=== PATIENT | female | born 1990 | race Caucasian/White ===

== ENCOUNTER 2023-01-27 23:44 | Inpatient (IN) ==
[2023-01-28] MEDS ORDERED: OXYTOCIN 30 UNITS/500 ML BAG IV PRN ×3 (02:24→14:04)
[2023-01-28] MEDS ORDERED: LIDOCAINE 1% LOCAL 20 ML VIAL INFIL PRN (02:24)
[2023-01-28] MEDS ORDERED: ePHEDrine sulfate 50 MG/ML AMP ONE (02:40)
[2023-01-28] MEDS ORDERED: BUPIVACAINE 0.25% PF 30 ML VIAL ONE (02:41)
[2023-01-28] MEDS ORDERED: SODIUM CHLORIDE 0.9% PF INJ 10 ML VIAL ONE (02:41)
[2023-01-28] MEDS ORDERED: fentaNYL citrate PF 100 MCG/2 ML VIAL ONE (02:41)
[2023-01-28] MEDS ORDERED: fentaNYL 2MCG/ML ROPIVACAINE 1.25MG/ML 100 ML BAG EPI ONE (02:42)
[2023-01-28] MEDS ORDERED: LIDOCAINE 2%/EPINEPHRINE 1:200,000 20 ML PF ONE (02:42)
[2023-01-28] MEDS ORDERED: PENICILLIN G POTASSIUM 6 MU in DEXTROSE 5% 250 ML IV STA (02:44)
[2023-01-28] MEDS: LACTATED RINGER'S 1,000 ML IV PRN ×2 (02:50→06:55)
[2023-01-28 03:24] LABS: Hematocrit (blood only) 35.6 % (37.0-47.0); Hemoglobin 12.4 g/dl (12.0-16.0); Mean Corpuscular Hemoglobin 32.6 pg (25.0-34.0); Mean Corpuscular Hgb Conc 34.8 g/dL (32.0-36.0); Mean Corpuscular Volume 93.7 fL (80.0-100.0); Mean Platelet Volume 9.5 fL (9.4-12.4); Platelet Count 230 K/uL (130-400); RDW Coefficient of Variation 13.7 % (11.5-14.5); RDW Standard Deviation 46.4 fL (36.4-46.3); White Blood Count 13.55 K/ul (4.8-10.8)
--- NOTE | 2023-01-28 03:37 | Anesthesiology Consultation ---
Date of Service January 28, 2023 Assessment & Plan Chart Review Chart Review: Acceptable Risk for Labor Epidural Consults Requested none ASA ASA2 Proposed Anesthesia Anesthesia Type: Labor Epidural Risk / Benefits Reviewed With: PT / POA / Parent / Guardian, Accepts Plan and Informed Consent Obtained History Height/Weight Height: 5 ft 5 in Weight: 91.626 kg Allergies Allergy/AdvReac Type Severity Reaction Status Date / Time CAN'T TAKE STIMULANTS Allergy Mild HEART Uncoded 01/23/23 10:41 RACING decongestants AdvReac Unknown Uncoded 01/23/23 10:41 Medications Home Medications Medication Instructions Recorded Confirmed Last Taken prenat.vits,dmitry,pdp-adun-yfjhr 1 tab PO DAILY 06/17/22 01/23/23 Unknown Active Medications Generic Name Dose Route Start Last Admin Trade Name Freq PRN Reason Stop Dose Admin Penicillin G Potassium 6 mu/ 262 mls @ 262 mls/hr 01/28/23 02:44 01/28/23 03:19 Dextrose IV 01/28/23 03:43 262 mls/hr NOW STA Administration Lactated Ringer's 1,000 mls @ 125 mls/hr 01/28/23 02:24 01/28/23 03:20 Lr IV 01/30/23 02:23 125 mls/hr .Q8H PRN Infusion L&D Protocol Protocol Past Medical History Medical History History of chicken pox Hx of cardiac murmur ?hx long QT, then told did not have gene for long QT and she actually just had irregular heart beat Long Q-T syndrome Migraine without aura Exercise / Class Metabolic Activity II 4-5 Yardwork/Stairs/Walk up hill Past Family History Family History Aunt Cervix cancer paternal Other Diabetes Heart disease Hypertension Denies family history of Ovarian cancer Breast cancer Colorectal cancer Uterine cancer Past Surgical History Surgical History History of third molar tooth extraction No pertinent past surgical history S/P wisdom tooth extraction Past Anesthesia History No Hx of Anesthesia Complications and No Family Hx of Anesthesia Complications History of PONV No Hx of PONV and No Hx of Motion Sickness Social History Smoking Status: Never smoker Do You Dip or Chew Tobacco: No Hx Alcohol Use: No Hx Substance Use: No substance use type: does not use Physical Exam Vital Signs Last Vital Signs Temp 98.1 F 01/28/23 00:10 Pulse 60 01/28/23 00:10 Resp 18 01/28/23 00:10 BP 105/62 01/28/23 00:10 ENMT Mouth: no dentition abnormality Thyromental Distance: > or= 3.5 Finger Breadths Mallampati Class: II Neck normal visual inspection Respiratory normal respiratory effort Auscultation: lungs clear to auscultation bilaterally Cardiovascular Rate/Rhythm: regular rate and regular rhythm Testing Laboratory Results 01/28/23 03:02
[2023-01-28] MEDS ORDERED: ePHEDrine sulfate 50 MG/ML AMP IV PRN (03:58)
[2023-01-28] MEDS ORDERED: BUPIVACAINE 0.25% PF 30 ML VIAL EPI STA (03:58)
[2023-01-28] MEDS ORDERED: fentaNYL citrate PF 100 MCG/2 ML VIAL EPI PRN (03:58)
[2023-01-28] MEDS ORDERED: LIDOCAINE 2% MPF LOCAL 5 ML VIAL EPI PRN (03:58)
[2023-01-28] MEDS ORDERED: fentaNYL citrate PF 100 MCG/2 ML VIAL EPI STA (03:58)
[2023-01-28] MEDS ORDERED: fentaNYL 2MCG/ML ROPIVACAINE 1.25MG/ML 100 ML BAG EPI PRN (03:58)
[2023-01-28] MEDS ORDERED: diphenhydrAMINE 50 MG/ML VIAL IV PRN (03:58)
[2023-01-28] MEDS ORDERED: LIDOCAINE 2%/EPINEPHRINE 1:200,000 20 ML PF EPI STA (03:58)
[2023-01-28] MEDS ORDERED: SODIUM CHLORIDE 0.9% PF INJ 10 ML VIAL EPI STA (03:58)
[2023-01-28] MEDS ORDERED: NALOXONE HCL 1 MG in SODIUM CHLORIDE 0.9% 1000ML 1,000 ML IV PRN (03:58)
[2023-01-28] MEDS ORDERED: NALOXONE HCL 0.4 MG/1 ML VIAL/CARP IV PRN (03:58)
[2023-01-28] MEDS ORDERED: ONDANSETRON INJ 2 MG/ML 2 ML VIAL IV PRN (03:58)
[2023-01-28] MEDS ORDERED: ROPIVACAINE 0.5% PF 5 MG/ML 20 ML VIAL EPI PRN (03:58)
[2023-01-28] MEDS ORDERED: NALBUPHINE HCL INJ 10 MG/ML AMP IV PRN (03:58)
[2023-01-28] MEDS ORDERED: BUPIVACAINE 0.25% PF 30 ML VIAL EPI PRN (03:58)
[2023-01-28] MEDS ORDERED: SODIUM CHLORIDE 0.9% PF INJ 10 ML VIAL EPI PRN (03:58)
--- NOTE | 2023-01-28 05:59 | History & Physical Report ---
Date of Service January 28, 2023 Assessment & Plan (1) Supervision of normal first : (2) Carrier of group B Streptococcus: Plan 32 yo G1 at 40 5/7 wga admitted in labor VSS Fetus cat 1 labor - augment PRN GBS+, pcn ordered epidural in place Admission and Anticipated Discharge Date Admission Date: January 28, 2023 History of Present Illness Chief Complaint: ctx Primary Care Provider: Jt Liang PA-C 32 yo G1 at 40 5/7 wga presented earlier this AM w /ctx increasing in frequency and intensity. 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 Hx: G1 denies hx STIs 10/2020 neg cotest Allergies Allergy/AdvReac Type Severity Reaction Status Date / Time CAN'T TAKE STIMULANTS Allergy Mild HEART Uncoded 01/23/23 10:41 RACING decongestants AdvReac Unknown Uncoded 01/23/23 10:41 Home Medications Medication Instructions Recorded Confirmed Type prenat.vits,dmitry,bii-hufk-pxtfb 1 tab PO DAILY 06/17/22 01/28/23 History Patient History Medical History History of chicken pox Hx of cardiac murmur ?hx long QT, then told did not have gene for long QT and she actually just had irregular heart beat Long Q-T syndrome Migraine without aura Surgical History History of third molar tooth extraction No pertinent past surgical history S/P wisdom tooth extraction Family History Aunt Cervix cancer paternal Other Diabetes Heart disease Hypertension Denies family history of Ovarian cancer Breast cancer Colorectal cancer Uterine cancer Social History (Updated 06/17/22 @ 09:05 by Angie Arevalo) Smoking Status: Never smoker Second Hand Exposure: No; Do You Dip or Chew Tobacco: No; Tobacco Cessation Education Requested by Patient: No Hx Alcohol Use: No Hx Substance Use: No Preferred Language: Danish Communication Ability: Effective Dietetic Assistant Required: No Beliefs That Will Affect Care: None marital status: marital status details: Waylon Mejia (33) [phone] , work Current Living Situation: Spouse Current Living Situation Comment: lives with spouse, dog current occupational status: employed current occupation: [employer] Other Information That Helps Us Care for You: No Feels Safe at Home: Yes Safety Concerns: Feels Safe At This Time Assistive Devices: None Physical Exam Genitourinary: OB Exam Monitor Tracing: + external FHT monitor used, + external uterine monitor used and + category I SVE 3cm by RN Results & Data Vital Signs (Past 12 Hours) Vital Signs Temp Pulse Resp BP Pulse Ox 01/27/23 23:45 98.1 F 18 01/28/23 05:53 62 107/63 01/28/23 05:52 64 98 01/28/23 05:47 89 97 01/28/23 05:42 66 97 01/28/23 05:37 107 H 98 01/28/23 05:32 87 96 01/28/23 05:27 72 97 01/28/23 05:22 98 01/28/23 05:22 81 01/28/23 05:22 81 112/54 L 01/28/23 05:17 75 96 01/28/23 05:12 91 H 98 01/28/23 05:07 74 107/51 L 97 01/28/23 05:02 74 96 01/28/23 05:00 18 01/28/23 05:00 18 01/28/23 04:57 76 98 01/28/23 04:52 73 98 01/28/23 04:53 70 120/56 L 01/28/23 04:47 68 99 01/28/23 04:42 85 97 01/28/23 04:37 75 117/61 99 01/28/23 04:30 18 01/28/23 04:30 18 01/28/23 04:32 70 98 01/28/23 04:27 74 100 01/28/23 04:22 99 01/28/23 04:22 83 01/28/23 04:22 72 107/61 01/28/23 04:17 94 01/28/23 04:17 74 01/28/23 04:17 74 94 01/28/23 04:12 92 01/28/23 04:12 88 01/28/23 04:12 73 94 01/28/23 04:07 76 94 01/28/23 04:06 74 94 01/28/23 04:05 108/67 01/28/23 04:02 96 01/28/23 04:02 84 01/28/23 04:02 81 109/58 L 01/28/23 03:59 77 114/56 L 01/28/23 03:57 81 95 01/28/23 03:56 87 94 01/28/23 03:55 93 H 141/68 H 01/28/23 03:52 85 136/89 01/28/23 03:50 78 97 01/28/23 03:45 85 97 01/28/23 03:40 91 H 97 01/28/23 03:38 102 H 132/93 01/28/23 00:10 98.1 F 60 18 105/62 Laboratory Results OB Labs: Blood Type A Positive 06/19/22 Antibody Screen NEGATIVE 06/19/22 Hemoglobin 11.4 g/dl (12.0-16.0) L 10/31/22 Hematocrit 34.1 % (37.0-47.0) L 10/31/22 Mean Corpuscular Volume 90.4 fL (80.0-100.0) 06/19/22 Platelet Count 278 K/uL (130-400) 06/19/22 Rubella IgG Antibody Immune (Immune) 06/19/22 Rapid Plasma Reagin Nonreactive (Nonreactive) 06/19/22 Hepatitis B Surface Antigen. NON-REACTIVE (NON-REACTIVE) 06/19/22 Hepatitis C Antibody (EIA) NON-REACTIVE (NON-REACTIVE) 06/19/22 HIV (1&2) Ag and Ab Confirmation NON-REACTIVE (NON-REACTIVE) 06/19/22 Glucose 1 Hour 50 gm Load 96 mg/dl (70-130) 10/31/22 Maternal Serum Alpha Fetoprotein 46.9 ng/mL 08/07/22 OB Optional Labs: Chlamydia trachomatis RNA Not Detected (NotDetected) 06/19/22 Neisseria gonorrhoeae RNA Not Detected (NotDetected) 06/19/22 Alpha Fetoprotein Triple Screen SEE NOTE 08/07/22 Labs Reviewed: cf/sma-negative--mln cfdna-low risk--mln GBS positive afp neg--akh Code Status & VTE Plan VTE Prophylaxis Plan VTE Prophylaxis will be ordered: No Coding Level of Care Code None Diagnoses Supervision of normal first Z34.00 Carrier of group B Streptococcus Z22.330
[2023-01-28] MEDS ORDERED: NURSING L&D Epidural Breakthrough Pain Update ONE (07:24)
[2023-01-28] MEDS: PENICILLIN G POTASSIUM 3 MU in DEXTROSE 5% 100 ML IV SCH ×2 (07:27→12:23)
--- NOTE | 2023-01-28 07:55 | Labor Progress Brief Note ---
Date of Service January 28, 2023 Subjective comfortable w/ epidural Assessment & Plan (1) Supervision of normal first : (2) Carrier of group B Streptococcus: Plan 32 yo G1 at 40 5/7 wga admitted in labor VSS Fetus cat 1 labor - ctx look like they have spaced, will start pit GBS+, pcn ordered epidural in place Admission and Anticipated Discharge Date Admission Date: January 28, 2023 Physical Exam Genitourinary: Manual OB Exam: + cervical dilation 4 cm, + cervical effacement 60%, + station -2 and + amniotic fluid (SROM clear) OB Exam Monitor Tracing: + external FHT monitor used, + external uterine monitor used (irreg) and + category I (120/mod/+accel/-decel) Results & Data Vital Signs (Past 12 Hours) Vital Signs Temp Pulse Resp BP Pulse Ox 01/28/23 07:30 18 01/28/23 07:00 20 01/27/23 23:45 98.1 F 18 01/28/23 07:52 65 95 01/28/23 07:51 63 100/60 01/28/23 07:47 65 96 01/28/23 07:42 71 96 01/28/23 07:37 76 96 01/28/23 07:36 69 103/57 L 01/28/23 07:32 81 97 01/28/23 07:27 77 97 01/28/23 07:22 71 96 01/28/23 07:21 71 105/56 L 01/28/23 07:17 73 97 01/28/23 07:12 69 97 01/28/23 07:07 81 97 01/28/23 07:08 81 103/68 01/28/23 07:00 18 01/28/23 07:00 18 01/28/23 07:02 81 96 01/28/23 06:57 93 H 97 01/28/23 06:52 99 01/28/23 06:52 67 01/28/23 06:52 68 115/64 01/28/23 06:30 18 01/28/23 06:30 18 01/28/23 06:47 69 99 01/28/23 06:45 80 106/58 L 01/28/23 06:42 76 98 01/28/23 06:37 97 01/28/23 06:37 73 01/28/23 06:37 76 74/49 L 01/28/23 06:32 81 97 05 06:27 86 96 05 06:22 73 96 01/28/23 06:17 64 95 01/28/23 06:12 65 95 01/28/23 06:07 65 96 01/28/23 06:06 62 107/59 L 01/28/23 06:04 71 94 01/28/23 06:02 65 95 01/28/23 05:57 69 97 01/28/23 05:53 62 107/63 01/28/23 05:52 64 98 01/28/23 05:47 89 97 01/28/23 05:42 66 97 01/28/23 05:37 107 H 98 01/28/23 05:32 87 96 01/28/23 05:27 72 97 01/28/23 05:22 98 01/28/23 05:22 81 01/28/23 05:22 81 112/54 L 01/28/23 05:17 75 96 01/28/23 05:12 91 H 98 01/28/23 05:07 74 107/51 L 97 01/28/23 05:02 74 96 01/28/23 05:00 18 01/28/23 05:00 18 01/28/23 04:57 76 98 01/28/23 04:52 73 98 01/28/23 04:53 70 120/56 L 01/28/23 04:47 68 99 01/28/23 04:42 85 97 01/28/23 04:37 75 117/61 99 05 04:30 18 01/28/23 04:30 18 01/28/23 04:32 70 98 01/28/23 04:27 74 100 05 04:22 99 05 04:22 83 05 04:22 72 107/61 05 04:17 94 01/28/23 04:17 74 05 04:17 74 94 05 04:12 92 01/28/23 04:12 88 05 04:12 73 94 01/28/23 04:07 76 94 05 04:06 74 94 05 04:05 108/67 05 04:02 96 01/28/23 04:02 84 01/28/23 04:02 81 109/58 L 01/28/23 03:59 77 114/56 L 01/28/23 03:57 81 95 01/28/23 03:56 87 94 01/28/23 03:55 93 H 141/68 H 01/28/23 03:52 85 136/89 01/28/23 03:50 78 97 01/28/23 03:45 85 97 01/28/23 03:40 91 H 97 01/28/23 03:38 102 H 132/93 01/28/23 00:10 98.1 F 60 18 105/62 Coding Level of Care Code None Diagnoses Supervision of normal first Z34.00 Carrier of group B Streptococcus Z22.330
[2023-01-28] MEDS ORDERED: PENICILLIN G POTASSIUM 3 MU in DEXTROSE 5% 100 ML IV PRN (12:41)
--- NOTE | 2023-01-28 13:47 | Delivery Summary ---
Vaginal Delivery Summary Date of Service January 28, 2023 Vaginal Delivery Summary Spontaneous vaginal delivery the patient presented to labor for Dr. Hannon the night before she requested epidural received penicillin for group B strep status and progressed to fully dilated she pushed only over a few contractions there was some weight decelerations with pressure I debated using the vacuum but she was able to push so well she was able to deliver spontaneously. Baby's head was delivered mouth and nares suctioned there was a loose body cord the baby was pulled through gentle traction was again used no excessive force live vigorous female cord clamped and cut cord gases obtained cord blood obtained placenta removed with gentle traction IV Pitocin started second-degree tear repaired with 3-0 Vicryl sponge and instrument counts correct estimated blood loss 250 mL
[2023-01-28 14:04] LABS: Base Excess Cord Arterial Bld -10.9 mEq/L (-9-1.8); CO2 Cord Arterial Blood 73 mmHg (39.1-73.5); HCO3 Cord Arterial Blood 21 mmol/L (19.7-28.5); Oxygen Sat Cord Arterial Blood < 60.0 % (<60); PO2 Cord Arterial Blood 9 mmHg (4.1-31.7); pH Cord Arterial Blood 7.06 (7.1-7.38)
[2023-01-28] MEDS ORDERED: ACETAMINOPHEN 325 MG TAB PO PRN (14:04)
[2023-01-28] MEDS ORDERED: oxyCODONE/ACETAMINOPHEN 5mg/325mg TAB PO PRN (14:04)
[2023-01-28] MEDS ORDERED: BENZOCAINE 20% AER SPR 82.5 GM CAN EXT PRN (14:04)
[2023-01-28] MEDS ORDERED: bisacodyL 10 MG SUPP PR PRN (14:04)
[2023-01-28] MEDS ORDERED: HYDROCORTISONE ACETATE 25 MG SUPP PR PRN (14:04)
[2023-01-28] MEDS ORDERED: DIPHTHERIA/TETANUS/PERTUSSIS Vaccine (Tdap, Age 7+yrs) 0.5mL SYR/VL IM ONE (14:04)
[2023-01-28 14:05] LABS: Base Excess Cord Venous Blood -7.2 mEq/L (-7.7-1.9); Cord Venous Blood HCO3 22 mmol/L (18.4-26.8); Cord Venous Blood PCO2 59 mmHg (30.4-57.2); Cord Venous Blood PO2 23 mmHg (14.1-43.3); Cord Venous Blood pH 7.18 (7.20-7.44); O2 Saturation Cord Venous Bld < 60.0 % (<68)
--- NOTE | 2023-01-28 15:31 | Anesthesia Procedure Note ---
Date of Service January 28, 2023 Anesthesia Post Epidural Note Vital Signs Vital Signs: Temp Pulse Resp BP Pulse Ox 37.2 C 122 H 18 106/56 L 98 01/28/23 13:00 01/28/23 15:17 01/28/23 13:00 01/28/23 15:17 01/28/23 13:22 Pain Intensity Lower Abdomen: Pain Intensity: 2 Notes Mental Status: alert / awake / arousable and participated in evaluation Patient Amnestic to Procedure: No Nausea / Vomiting: adequately controlled Pain: adequately controlled Airway Patency, RR, SpO2: stable & adequate BP & HR: stable & adequate Hydration State: stable & adequate Neuraxial Anesthesia: was administered and sensory block is resolving Anesthetic Complications: no major complications apparent and Pt Satisfied with anesthetic care Epidural: Removed without complications and With tip intact
[2023-01-28] MEDS: IBUPROFEN 600 MG TAB PO PRN ×2 (16:29→21:26)
[2023-01-28] MEDS ORDERED: LACTATED RINGER'S 1,000 ML IV ONE (19:00)
[2023-01-28] MEDS: DOCUSATE SODIUM 100 MG CAP PO SCH (20:16)
[2023-01-29] MEDS: IBUPROFEN 600 MG TAB PO PRN ×4 (05:30→21:37)
--- NOTE | 2023-01-29 06:03 | Obstetrical Progress Note ---
Date of Service <Samantha Bhatia DO - Last Filed: 01/29/23 07:21> January 29, 2023 Assessment & Plan <Samantha AnnSally Bhatia DO - Last Filed: 01/29/23 07:21> (1) care following vaginal delivery: Patient is PPD 1 s/p and doing well. - Eating well, voiding well, ambulating well - Vitals reviewed and within normal limits - Pain well controlled with analgesics - OOB, ambulation, diet progression as tolerated - Blood type: A+, GBS pos (tx in labor), rubella immune - Plan to discharge tomorrow - After discharge, 6 week follow up with Dr. Marquez (2) Carrier of group B Streptococcus: <Андрей Marquez MD, FACOG - Last Filed: 01/29/23 07:53> (1) care following vaginal delivery: (2) Carrier of group B Streptococcus: Subjective <Samantha Bhatia DO - Last Filed: 01/29/23 07:21> Patient is a 32 yo female who is now PPD #1 following spontaneous vaginal delivery at 40 5/7 weeks. Reports feeling well this morning. She endorses feeling "weird" and like her "lungs have never been this full." She denies abdominal cramping. Voiding without issue. Tolerating regular meals overnight and able to ambulate some. She has passed gas. Persistent lochia with some improvement this morning. Currently bottle feeding. Review of Systems Denies fever, chills, sweats. Denies SOB, difficulty breathing, chest pain, palpitations, and chest pressure. Denies breast pain. Denies dysuria. Denies headache or changes in vision. Physical Exam <Samantha Bhatia DO - Last Filed: 01/29/23 07:21> General: Alert and oriented. No acute distress. CV: Regular rate and rhythm. No murmurs. Respiratory: CTA bilaterally. No rhonchi, wheezes, or crackles. No increased work of breathing. Abdomen: Positive bowel sounds. Soft, nontender, non distended. Uterus: Fundus firm and palpable 3 cm below the umbilicus. Lower extremities: No LE edema. No deep calf pain. Results & Data <Samantha Bhatia DO - Last Filed: 01/29/23 07:21> Vital Signs (Past 12 Hours) Vital Signs Temp Pulse Resp BP Pulse Ox O2 Del Method 01/28/23 19:54 36.6 C 88 16 116/72 97 Room Air <Андрей Marquez MD, FACOG - Last Filed: 01/29/23 07:53> Co-Signing Physician Notes Resident Physician Supervision Note: I was present with [Name of resident] during the history and exam. I discussed the case with the resident and agree with the findings and plan as documented in the note. Any exceptions or clarifications are listed here: [None] Documented By: Андрей Marquez MD, FACOG Resident Activity Tracking <Samantha Bhatia DO - Last Filed: 01/29/23 07:21> Resident Involvement: Resident Care Provided Care Provided: OB Delivery
[2023-01-29] MEDS: DOCUSATE SODIUM 100 MG CAP PO SCH ×2 (07:31→21:35)
[2023-01-29] MEDS: PRENATAL VITAMIN 1 TAB PO SCH (07:31)
[2023-01-29 07:47] LABS: Hematocrit (blood only) 28.8 % (37.0-47.0); Hemoglobin 9.8 g/dl (12.0-16.0); Mean Corpuscular Hemoglobin 32.8 pg (25.0-34.0); Mean Corpuscular Volume 96.3 fL (80.0-100.0); Mean Platelet Volume 9.3 fL (9.4-12.4); Platelet Count 186 K/uL (130-400); RDW Coefficient of Variation 13.9 % (11.5-14.5); Red Blood Count 2.99 M/uL (4.20-5.40); White Blood Count 11.84 K/ul (4.8-10.8)
[2023-01-29] MEDS ORDERED: bisacodyL 5 MG TABEC PO SCH (20:00)
[2023-01-30] MEDS: IBUPROFEN 600 MG TAB PO PRN ×2 (01:24→06:01)
--- NOTE | 2023-01-30 05:42 | Obstetrical Progress Note ---
Date of Service <Samantha Medeiros DO Sriram - Last Filed: 01/30/23 07:13> January 30, 2023 Assessment & Plan <Samantha SimpsonDO james - Last Filed: 01/30/23 07:13> (1) care following vaginal delivery: Patient is PPD 2 s/p and doing well. - Eating well, voiding well, ambulating well - Vitals reviewed and within normal limits - Pain well controlled with analgesics - OOB, ambulation, diet progression as tolerated - Blood type: A+, GBS pos (tx in labor), rubella immune - Plan to discharge today - After discharge, 6 week follow up with Dr. Marquez (2) Carrier of group B Streptococcus: <Mariam Butterfield MD, FACOG - Last Filed: 01/30/23 07:17> (1) care following vaginal delivery: (2) Carrier of group B Streptococcus: Subjective <Samantha Medeiros DO Sriram - Last Filed: 01/30/23 07:13> Patient is a 32 yo female who is now PPD #2 following spontaneous vaginal delivery at 40 5/7 weeks. Reports feeling well this morning. She denies abdominal cramping and pain well managed on analgesics. Voiding without issue. Tolerating regular meals overnight and able to ambulate some. She has passed gas but no bowel movements. Persistent lochia with some improvement this morning. Currently breast feeding. Review of Systems Denies fever, chills, sweats. Denies SOB, difficulty breathing, chest pain, palpitations, and chest pressure. Denies breast pain. Denies dysuria. Denies headache or changes in vision. Physical Exam <Samantha SimpsonDO james - Last Filed: 01/30/23 07:13> General: Alert and oriented. No acute distress. CV: Regular rate and rhythm. No murmurs. Respiratory: CTA bilaterally. No rhonchi, wheezes, or crackles. No increased work of breathing. Abdomen: Positive bowel sounds. Soft, nontender, non distended. Uterus: Fundus firm and palpable 4 cm below the umbilicus. Lower extremities: Bilateral LE edema w/o erythema or tenderness. No deep calf pain. Results & Data <Samantha Bhatia DO - Last Filed: 01/30/23 07:13> Vital Signs (Past 12 Hours) Vital Signs Temp Pulse Resp BP O2 Del Method 01/30/23 00:45 Room Air 01/30/23 00:45 36.7 C 94 H 18 119/78 Room Air <Mariam Butterfield MD, FACOG - Last Filed: 01/30/23 07:17> Co-Signing Physician Notes Resident Physician Supervision Note: I interviewed and examined the patient. Discussed with Dr. Bhatia and agree with findings and plan as documented in the note. Any exceptions or clarifications are listed here: Doing well. Plan d/c today. Instructions given. Documented By: Mariam Butterfield MD, FACOG Resident Activity Tracking <Samantha Bhatia, - Last Filed: 01/30/23 07:13> Resident Involvement: Resident Care Provided Care Provided: OB Delivery
[2023-01-30] MEDS: DOCUSATE SODIUM 100 MG CAP PO SCH (07:45)
[2023-01-30] MEDS: PRENATAL VITAMIN 1 TAB PO SCH (07:46)
== END 2023-01-30 15:15 | disposition home or self-care (01) | DRG 807 ==
LOC: OPB 23:44 → 4S1 23:45 → 4E2 01-28 16:25